=== PATIENT | female | born 1965 | race Hispanic/Latino ===

== ENCOUNTER → 2020-05-12 14:58 | Outpatient (CLI) | payer OTHER, SELFPAY ==
--- NOTE | ~2020-05-12 | CT_ITS ---
EXAMINATION: CT abdomen pelvis wo con DATE: 05/12/2020 15:19 INDICATION: Chronic bladder TECHNIQUE: Computed tomography (CT) of the abdomen and pelvis was performed without intravenous contr ast. The dose-length product was 835.85 mGy-cm. Automated exposure control and iterative reconstructi on technique were employed. COMPARISON: CT dated 04/10/2008 FINDINGS: 4 mm right middle lobe nodule, image 4. Heart size normal. No significant pleural or perica rdial effusion. The liver, spleen, pancreas, adrenal glands and kidneys are unremarkable. Gallbladder is present. No free air or free fluid. No lymphadenopathy. Gallbladder is present. Nonobstructive bowel gas pattern. Small fat-containing umbilical hernia. No acute osseous abnormality. IMPRESSION: 1. No acute abdominal abnormality. 2: 4 mm right middle lobe nodule, likely benign. Follow-up low dose CT in 12 months recommended. Reviewed, dictated and finalized at location [facility]. IMPRESSION: 1. No acute abdominal abnormality. 2: 4 mm right middle lobe nodule, likely benign. Follow-up low dose CT in 12 m [facility] recommended.
== END ==
DX: R39.82 Chronic bladder pain (principal); R91.1 Solitary pulmonary nodule
CPT/HCPCS: 74176

== ENCOUNTER → 2021-04-13 16:02 | Outpatient (CLI) | payer OTHER, SELFPAY ==
--- NOTE | ~2021-04-13 | CT_ITS ---
EXAMINATION: CT diagnostic chest wo con DATE: 04/13/2021 16:18 INDICATION: Solitary pulmonary nodule; 4 mm middle lobe nodule reported on 05/12/2020 CT abdomen pelvi s TECHNIQUE: Computed tomography (CT) of the chest was performed without intravenous contrast. Automate d exposure control and iterative reconstruction technique were employed. Exam dose: 81.03 mGy-cm tot al exam DLP. COMPARISON: None FINDINGS: Stable 3.4 mm middle lobe nodule (series 4 image 80) since 05/12/2020. Stable approximately 3.5 mm peripheral lower anteromedial middle lobe nodule (image 88) since 05/12/20 20. Stable posterior basilar peripheral right lower lobe 3.9 mm pulmonary nodule (image 102). The lungs are clear of infiltrate or consolidation. No significant new or developing pulmonary opacit y is noted since 05/12/2020. Normal heart size. No pericardial or pleural effusion. No thoracic aortic aneurysm. No hilar or mediastinal mass lesion or lymphadenopathy. Included upper abdominal structures including adrenal glands are unremarkable. Included skeletal structures are unremarkable. IMPRESSION: Several stable 3.9 mm or smaller right middle and lower lobe likely benign nodules since 05/12/2020. Reviewed, dictated and finalized at [facility]. Reviewed, dictated and finalized at location [facility]. IMPRESSION: Several stable 3.9 mm or smaller right middle and lower lobe likel y benign nodules since 05/12/2020.
== END ==
DX: R91.8 Other nonspecific abnormal finding of lung field (principal)
CPT/HCPCS: 71250

== ENCOUNTER → 2022-05-26 15:27 | Outpatient (CLI) | payer OTHER, SELFPAY ==
--- NOTE | ~2022-05-26 | CT_ITS ---
EXAMINATION: CT diagnostic chest wo con DATE: 05/26/2022 15:45 INDICATION: Incidental lung nodule TECHNIQUE: Computed tomography (CT) of the chest was performed without intravenous contrast. The dose -length product was 89.64 mGy-cm. COMPARISON: CT chest dated 04/13/[address] abdomen dated 05/12/2020 FINDINGS: Aorta is normal caliber without evidence for aneurysm. Heart size is normal. No significant pleural or pericardial effusion. No thoracic lymphadenopathy. Stable 3 mm right middle lobe nodule, image 77. Stable 3 mm nodule in the right middle lobe, image 84. Stable 4 mm nodule right lower lobe posteriorly, image 102. There is a 2-3 mm nodule right upper lobe, 34, stable. No endobronchial lesio ns. No pneumothorax. No focal airspace consolidation. Mild thoracic spondylosis. No focal lytic or bl astic skeletal lesions. IMPRESSION: 1. Stable pulmonary nodules measuring 4 mm or less, likely benign granulomatous disease. Consider fol low-up low dose CT chest in 12 months. Reviewed, dictated and finalized at location [facility]. IMPRESSION: 1. Stable pulmonary nodules measuring 4 mm or less, likely benign granulomatous disease. Consider follow-up low dose CT chest in 12 months.
== END ==
DX: R91.8 Other nonspecific abnormal finding of lung field (principal)
CPT/HCPCS: 71250

== ENCOUNTER 2023-03-22 19:50 | Emergency (ER) | payer OTHER, SELFPAY ==
[2023-03-22 19:55] VITALS: BP 145/80; PULSE 77; RESP 18; TEMP 36.7; O2SAT 100
--- NOTE | 2023-03-22 21:14 | PC.NURSE ---
patient left without being seen. states her medication that she took earlier kicked in. states she will come back tomorrow if she still feels like she needs to be seen.
== END 2023-03-22 21:43 | disposition left against medical advice (07) ==
LOC: ANHED 21:28
DX: R51.9 Headache, unspecified (principal)
CPT/HCPCS: 99199

== ENCOUNTER 2023-12-19 08:03 | Emergency (ER) | payer OTHER, SELFPAY ==
--- NOTE | ~2023-12-19 | CT_ITS ---
EXAMINATION: CT abdomen pelvis w con DATE: 12/19/2023 09:04 INDICATION: Left flank pain. TECHNIQUE: Computed tomography (CT) of the abdomen and pelvis was performed with 100 mL Omnipaque 350 intravenous contrast. Automated exposure control and iterative reconstruction technique were employe d. The dose-length product was 738.83 mGy-cm. COMPARISON: None. FINDINGS: The visualized portions of the lung bases demonstrate mild atelectasis. There is a 3 mm nod ule in right lower lobe, likely benign. No pleural effusion. The heart size is normal. No pericardial effusion. The liver, gallbladder, spleen, pancreas, adrenal glands, and kidneys are normal. There ar e no dilated loops of bowel. The appendix is not visualized. There are no pathologically enlarged lym ph nodes. There is no free intraperitoneal fluid. There is mild thoracic spondylosis and moderate lum bar spondylosis. IMPRESSION: 1. No etiology for the patient's symptoms. Reviewed, dictated and finalized at location [facility].
[2023-12-19 08:11] VITALS: BP 135/76; PULSE 60; RESP 16; TEMP 36.6; O2SAT 98
[2023-12-19 08:35] LABS: Basophils Absolute Auto 0.1 K/mm3 (0.0-0.1); Basophils Percent Auto 0.7 % (0.2-1.2); Eosinophils Absolute Auto 0.2 K/mm3 (0-0.3); Hematocrit 40.9 % (37.0-47.0); Hemoglobin 13.3 g/dL (12.0-15.0); Immature Granulocyte Absolute 0.02 K/mm3 (0.00-0.031); Immature Granulocyte Percent A 0.3 % (0-0.5); Lymphocytes Absolute Auto 2.09 K/mm3 (0.9-3.2); Lymphocytes Percent Auto 28.9 % (18.3-44.2); Mean Corpuscular HGB Conc 32.5 g/dl (32-36); Mean Corpuscular Hemoglobin 28.9 pg (26-34); Mean Corpuscular Volume 88.9 fl (80-100); Mean Platelet Volume 9.9 fl (7.4-10.4); Monocytes Absolute Auto 0.4 K/mm3 (0.1-0.6); Monocytes Percent Auto 5.8 % (2.6-8.5); Neutrophils Absolute Auto 4.4 K/mm3 (1.3-6.7); Neutrophils Percent Auto 61.3 % (45.5-73.1); Platelet Count Result 253 k/mm3 (150-375); Red Cell Distribution Width 12.8 % (11.5-14.5); White Blood Count 7.2 K/mm3 (4.5-10.0)
[2023-12-19] MEDS: SODIUM CHLORIDE 0.9% IV 1,000 ML 999 ML IV CONT (08:35)
[2023-12-19] MEDS: ONDANSETRON INJ 4 MG/2 ML VIAL IV PUSH (08:35)
[2023-12-19] MEDS: MORPHINE SULFATE (*CRX) 4 MG/ML INJ IV PUSH (08:35)
[2023-12-19 08:44] LABS: Alanine Aminotransferase 22 U/L (6-35); Albumin Level 4.4 g/dL (3.5-5.1); Alkaline Phosphatase 79 U/L (38-126); Anion Gap 4 mmol/L (4-12); Aspartate Amino Transferase 20 U/L (14-36); Bilirubin,Total 0.5 mg/dL (0.2-1.3); Blood Urea Nitrogen 17 mg/dL (7-17); Calcium 9.4 mg/dL (8.4-10.2); Carbon Dioxide 26 mmol/L (22-30); Chloride 109 mmol/L (98-107); Estimated CRCL calculation 88 ml/min; Estimated Glomerular Filt Rate > 60; Glucose 105 mg/dL (65-110); Lipase 108 U/L (23-300); Sodium 139 mmol/L (137-145)
[2023-12-19 08:46] LABS: Appearance Urine Clear (Clear); Bacteria Urine None Seen /hpf; Bilirubin Urine Negative (Negative); Blood Urine Trace (Negative); Color Urine Yellow (Yellow); Glucose Urine UA Negative (Negative); Ketones Urine Negative (Negative); Leukocyte Esterase Ur Negative LEU/UL (Negative); Nitrate Urine Negative (Negative); Non Pathogenic Casts 0-2; Protein Urine Negative (Negative); RBC Urine 0-2 /hpf (0-2); Specific Grav Ur 1.014 (1.001-1.035); Squamous Epithelial Cell Urine None Seen /hpf (Few); Urobilinogen Urine 0.2 mg/dL (<2.0); WBC Urine 0-5 /hpf (0-3)
[2023-12-19 09:17] LABS: Add Urine Microscopic? YES
--- NOTE | 2023-12-19 10:17 | ED.ABDPAIN ---
HPI - Abdominal Pain General Chief Complaint: Abdominal Pain Stated Complaint: left flank pain Time Seen by Provider: 12/19/23 08:14 History of Present Illness HPI narrative: This is a 58-year-old female, with no significant past medical history, who presents to the emergency department complaining of left flank pain for the past 3 days. The patient denies any known trauma or recent change in health. She states she was at rest when she felt a sharp pain in the left flank. It is constant and aggravated by direct touch without any other obvious aggravating or alleviating factors. She rates it 8/10 at maximum and 4/10 at rest. She complains of some nausea with worsening of her pain. She has no other complaints at this time. Related Data Allergies Allergy/AdvReac Type Severity Reaction Status Date / Time clavulanic acid Allergy Mild Unknown Verified 12/19/23 08:20 codeine Allergy Mild Unknown Verified 12/19/23 08:20 Penicillins Allergy Mild Unknown Verified 12/19/23 08:20 ALLERGY SHOT SERUM Allergy Mild DIFF Uncoded 12/19/23 08:20 BREATHING BETALACTAMASEIN Allergy Mild Unknown Uncoded 12/19/23 08:20 ENVIRONMENTALS-DUST,OAK,MOLD,GRASS,CATS,DOGS Allergy Mild HIVES, Uncoded 12/19/23 08:20 SINUS REACTION, SWELLING Review of Systems Review of Systems: CONSTITUTIONAL: Denies fever, chills, or sweats. EYES: Denies visual changes, redness, or discharge. ENT: Denies rhinorrhea, congestion, sore throat, or otalgia. CARDIOVASCULAR: Denies chest pain, palpitations, or edema. RESPIRATORY: Denies cough or dyspnea. GASTROINTESTINAL: Left flank pain Denies abdominal pain, nausea, vomiting, or diarrhea. GENITOURINARY: Denies dysuria or hematuria. SKIN: Denies rash or itching. MUSCULOSKELETAL: Denies back pain, joint pain, or myalgia. NEUROLOGIC: Denies headache, numbness, dizziness, or weakness. PSYCHIATRIC: Denies anxiety or depression. [facility] Past Medical History Medical History (Updated 12/19/23 @ 10:25 by Duglas Matta MD) No significant past medical history Surgical History Surgical History (Updated 12/19/23 @ 10:25 by Duglas Matta MD) No significant past surgical history Social History Social History (Updated 12/19/23 @ 10:25 by Duglas Matta MD) Smoking status: Never smoker Alcohol intake: current Substance use: current Substance use type: marijuana Exam Narrative: GENERAL: Well-developed, well-nourished, and in no acute distress. HEAD: Normocephalic, atraumatic. EYES: PERRLA and EOMI. ENT: Nares clear, no rhinorrhea or epistaxis. Mucous membranes moist. Oropharynx without tonsillar hypertrophy exudate or other lesions. CHEST: Clear to auscultation. No respiratory distress. No wheezes rales or rhonchi HEART: Regular rate and rhythm. No murmur heard. Normal peripheral pulses. ABDOMEN: Soft, mild left upper quadrant tenderness without rebound, nondistended, normal active bowel sounds. Left CVA tenderness. No right CVA tenderness EXTREMITIES: Normal range of motion. No edema. SKIN: Warm, dry, no rash. NEURO: Alert and oriented x3. No focal deficit. Moving all 4 limbs spontaneously PSYCH: Normal mood and affect. Course Course Emergency Course: 10:15 - CBC unremarkable. Chemistries unremarkable. UA not concerning for urinary tract infection or hematuria. CT abdomen pelvis unremarkable. I do not have a good explanation for the patient's pain. I suspect this may be related to muscle spasm or perhaps radiculopathy. Will discharge with pain medications muscle relaxers and recommendation for primary care follow-up. I discussed the findings and recommendations with the patient. Discussed return and emergency precautions including signs/symptoms of acute abdomen. The patient voiced understanding and agreement with the plan. All questions answered to her satisfaction. Vital Signs Vital signs: Vital Signs Temperature 98 F 12/19/23 08:11 Pulse Rate 60 12/19/23 08:
== END 2023-12-19 10:38 | disposition home or self-care (01) ==
PROVIDERS: Emergency Provider Preventive Medicine Aerospace Medicine
DX: R10.9 Unspecified abdominal pain (principal)
CPT/HCPCS: 36415; 74177; 80053; 81001; 81025; 83690; 85025; 96361; 96374; 96375; 99284; J2270; J2405; J7030; Q9967

== ENCOUNTER 2024-02-23 11:50 | Emergency (ER) | payer OTHER, SELFPAY ==
--- NOTE | ~2024-02-23 | CT_ITS ---
CT of the Abdomen and Pelvis: Indication: Abdominal pain Technique: 2.5 mm axial scans were obtained through the abdomen and pelvis following intravenous adm inistration of 100 cc of Omnipaque 350. Dose reduction technique was used on this scan by utilizing a utomated exposure control and iterative reconstruction technique. The dose-length product (DLP) was 8 52.18 mGy-cm. COMPARISON: 12/19/2023 Findings: Scans through the lung bases are unremarkable. There is diffuse hepatic steatosis. The spleen, pancreas, gallbladder, adrenals and kidneys are withi n normal limits. No evidence of aortic aneurysm. No lymphadenopathy. No bowel obstruction or bowel wall thickening. There is no evidence to suggest acute appendicitis. Sm all fat-containing umbilical hernia present. Images through the pelvis were performed. Urinary bladder unremarkable. No pelvic mass seen. No ascit es. Impression: No acute abnormality. Diffuse hepatic steatosis. Small fat-containing umbilical hernia. Reviewed, dictated and finalized at [facility]. Impression: No acute abnormality. Diffuse hepatic steatosis. Small fat-containing umbilical hernia.
[2024-02-23 11:55] VITALS: BP 146/80; PULSE 60; RESP 16; TEMP 36.4; O2SAT 99
[2024-02-23 12:44] LABS: Basophils Percent Auto 0.6 % (0.2-1.2); Eosinophils Absolute Auto 0.1 K/mm3 (0-0.3); Eosinophils Percent Auto 0.7 % (0-4.4); Hematocrit 38.9 % (37.0-47.0); Hemoglobin 13.2 g/dL (12.0-15.0); Immature Granulocyte Absolute 0.03 K/mm3 (0.00-0.031); Immature Granulocyte Percent A 0.4 % (0-0.5); Lymphocytes Absolute Auto 2.13 K/mm3 (0.9-3.2); Lymphocytes Percent Auto 31.2 % (18.3-44.2); Mean Corpuscular HGB Conc 33.9 g/dl (32-36); Mean Corpuscular Hemoglobin 29.7 pg (26-34); Mean Corpuscular Volume 87.6 fl (80-100); Mean Platelet Volume 10.2 fl (7.4-10.4); Monocytes Absolute Auto 0.6 K/mm3 (0.1-0.6); Monocytes Percent Auto 8.2 % (2.6-8.5); Neutrophils Percent Auto 58.9 % (45.5-73.1); Platelet Count Result 224 k/mm3 (150-375); Red Blood Count 4.44 M/mm3 (4.2-5.4); White Blood Count 6.8 K/mm3 (4.5-10.0)
[2024-02-23 12:48] LABS: Appearance Urine Clear (Clear); Bacteria Urine None Seen /hpf; Bilirubin Urine Negative (Negative); Blood Urine Trace (Negative); Color Urine Yellow (Yellow); Glucose Urine UA Negative (Negative); Ketones Urine Negative (Negative); Leukocyte Esterase Ur Negative LEU/UL (Negative); Nitrate Urine Negative (Negative); Non Pathogenic Casts 0-2; Protein Urine Negative (Negative); RBC Urine 0-2 /hpf (0-2); Specific Grav Ur 1.005 (1.001-1.035); Squamous Epithelial Cell Urine None Seen /hpf (Few); Urobilinogen Urine 0.2 mg/dL (<2.0); WBC Urine 0-5 /hpf (0-3)
[2024-02-23 12:51] LABS: Add Urine Microscopic? YES
[2024-02-23 12:55] LABS: Alanine Aminotransferase 37 U/L (6-35); Albumin Level 4.6 g/dL (3.5-5.1); Alkaline Phosphatase 92 U/L (38-126); Anion Gap 7 mmol/L (4-12); Aspartate Amino Transferase 28 U/L (14-36); Bilirubin,Total 0.7 mg/dL (0.2-1.3); Blood Urea Nitrogen 9 mg/dL (7-17); Calcium 9.1 mg/dL (8.4-10.2); Carbon Dioxide 27 mmol/L (22-30); Chloride 103 mmol/L (98-107); Estimated CRCL calculation 86 ml/min; Estimated Glomerular Filt Rate > 60; Glucose 104 mg/dL (65-110); Lipase 217 U/L (23-300); Potassium 3.5 mmol/L (3.4-5.0); Sodium 137 mmol/L (137-145)
[2024-02-23] MEDS: ONDANSETRON INJ 4 MG/2 ML VIAL IV PUSH (13:08)
[2024-02-23] MEDS: BELLADONNA ALK/PHENOB ELIX 10 ML, MAG HYDROX/ALUMINUM HYD/SIMETH 30 ML, LIDOCAINE HCL 2... PO (13:09)
--- NOTE | 2024-02-23 13:12 | ED.ABDPAIN ---
HPI - Abdominal Pain General Chief Complaint: Abdominal Pain Stated Complaint: took prednisone without food, upset stomach Time Seen by Provider: 02/23/24 12:47 History of Present Illness HPI narrative: 58-year-old female presents to the emergency department for evaluation for abdominal pain after taking prednisone the. Patient reports yesterday she took a prednisone and naproxen because she was having some right-sided muscle pain from water skiing. Patient states after taking medication she had onset flush face, and abdominal pain. Patient states she is still having abdominal pain. Patient reports she feels bloated. Related Data Home Medications Medication Instructions Recorded Confirmed ibamhqggxp-ciwoljsmgbcno-iqcuofgf tablet 02/23/24 02/23/24 50 mg-325 mg-40 mg tablet levothyroxine 88 mcg tablet mcg 02/23/24 methylprednisolone 4 mg tablets in mg 02/23/24 a dose pack rizatriptan 10 mg tablet mg 02/23/24 trazodone 50 mg tablet mg 02/23/24 triamcinolone acetonide 0.5 % applic topical 02/23/24 topical cream Allergies Allergy/AdvReac Type Severity Reaction Status Date / Time clavulanic acid Allergy Mild Unknown Verified 02/23/24 12:07 codeine Allergy Mild Unknown Verified 02/23/24 12:07 Penicillins Allergy Mild Unknown Verified 02/23/24 12:07 ALLERGY SHOT SERUM Allergy Mild DIFF Uncoded 02/23/24 12:07 BREATHING BETALACTAMASEIN Allergy Mild Unknown Uncoded 02/23/24 12:07 ENVIRONMENTALS-DUST,OAK,MOLD,GRASS,CATS,DOGS Allergy Mild HIVES, Uncoded 02/23/24 12:07 SINUS REACTION, SWELLING Review of Systems Review of Systems: All systems reviewed & are unremarkable except as noted in HPI and below PMFSH Past Medical History Medical History (Updated 02/23/24 @ 13:58 by Joseph Willson MD) No significant past medical history Surgical History Surgical History (Updated 12/19/23 @ 10:25 by Duglas Matta MD) No significant past surgical history Social History Social History (Updated 12/19/23 @ 10:25 by Duglas Matta MD) Smoking status: Never smoker Alcohol intake: current Substance use: current Substance use type: marijuana Exam Narrative: APPEARANCE: Well appearing, no pain, no distress, well-nourished. HEAD: normocephalic, atraumatic. EYES: PERRLA/EOMI, conjunctivae clear. NOSE: Normal no drainage EARS:TMS clear with good light reflex. THROAT: Pharynx clear, no exudate. NECK: Supple. No adenopathy, no masses. RESPIRATORY: Airway patent, respirations nonlabored. Clear to auscultation bilaterally, no rales, rhonchi, wheezing. CARDIOVASCULAR: Regular rate and rhythm without murmurs rubs or gallops. ABDOMINAL: Diffuse abdominal tenderness to palpation MUSCULOSKELETAL: Moves all extremities. Strength/ROM intact, No edema, No calf tenderness. NEURO: Alert. Cranial nerves II through XII intact. Good gait. Good coordination SKIN: Warm, dry. Normal Color PSYCHIATRIC: Normal affect/mood. Course Vital Signs Vital signs: Vital Signs Temperature 97.6 F 02/23/24 11:55 Pulse Rate 60 02/23/24 11:55 Respiratory Rate 16 02/23/24 11:55 Blood Pressure 146/80 H 02/23/24 11:55 Pulse Oximetry 99 02/23/24 11:55 Temperature 97.6 F 02/23/24 11:55 Pulse Rate 60 02/23/24 11:55 Respiratory Rate 16 02/23/24 11:55 Blood Pressure 146/80 H 02/23/24 11:55 Pulse Oximetry 99 02/23/24 11:55 MDM - Abdominal Pain MDM Narrative Medical decision making narrative: 58-year-old female presents emergency department for evaluation of epigastric pain and abdominal bloating. Patient is afebrile with no leukocytosis and a stable hemoglobin of 13.2. Patient has no significant abnormalities on her CMP and lipase is negative. UA is negative. CT scan showed no acute abnormalities. Patient was updated the results of her workup patient was comfortable with plan for discharge and close follow-up. Differential Diagnosis Differential diagnosis: Likely
== END 2024-02-23 14:15 | disposition home or self-care (01) ==
PROVIDERS: Emergency Medicine; Emergency Provider Emergency Medicine
DX: K29.70 Gastritis, unspecified, without bleeding (principal); Z79.899 Other long term (current) drug therapy; K76.0 Fatty (change of) liver, not elsewhere classified; K42.9 Umbilical hernia without obstruction or gangrene
CPT/HCPCS: 36415; 74177; 80053; 81001; 83690; 85025; 96360; 99284; A9270; J2405; Q9967

== ENCOUNTER 2024-04-26 14:25 | Emergency (ER) | payer OTHER, SELFPAY ==
--- NOTE | 2024-04-26 14:36 | ED.FEMALEGU ---
HPI - Female Genitourinary General Chief complaint: Urogenital-Female Stated complaint: FREQUENT URINATION Time Seen by Provider: 04/26/24 14:49 Source: patient and RN notes reviewed Mode of arrival: ambulatory Limitations: no limitations History of Present Illness HPI Narrative: 58-year-old female presents concern for urine frequency for 4 days. She denies dysuria, urgency, suprapubic pain, back pain, fever, aches, chills, sweats. She reports history of overactive bladder she has had it twice before both times in March. Reports her urologist prescribed her a medication that helped resolve it. MD elicited complaint: other (urine frequency) Related Data Home Medications Medication Instructions Recorded Confirmed [id number]-ufhtyogsxwftt-lecowlae tablet 02/23/24 02/23/24 50 mg-325 mg-40 mg tablet levothyroxine 88 mcg tablet mcg 02/23/24 methylprednisolone 4 mg tablets in mg 02/23/24 a dose pack rizatriptan 10 mg tablet mg 02/23/24 trazodone 50 mg tablet mg 02/23/24 triamcinolone acetonide 0.5 % applic topical 02/23/24 topical cream Allergies Allergy/AdvReac Type Severity Reaction Status Date / Time clavulanic acid Allergy Mild Unknown Verified 02/23/24 12:07 codeine Allergy Mild Unknown Verified 02/23/24 12:07 Penicillins Allergy Mild Unknown Verified 02/23/24 12:07 ALLERGY SHOT SERUM Allergy Mild DIFF Uncoded 02/23/24 12:07 BREATHING BETALACTAMASEIN Allergy Mild Unknown Uncoded 02/23/24 12:07 ENVIRONMENTALS-DUST,OAK,MOLD,GRASS,CATS,DOGS Allergy Mild HIVES, Uncoded 02/23/24 12:07 SINUS REACTION, SWELLING Review of Systems Review of Systems: CONSTITUTIONAL: Denies malaise, chills, sweats, or fever. CARDIOVASCULAR: Denies chest pain, palpitations, or edema. RESPIRATORY: Denies cough or dyspnea. GASTROINTESTINAL: Denies abdominal pain, nausea, vomiting, diarrhea GENITOURINARY: Denies dysuria, urgency, suprapubic pressure. Denies flank pain or hematuria. Reports urine frequency SKIN: Denies rash or itching. MUSCULOSKELETAL: Denies back pain or myalgia. All systems reviewed & are unremarkable except as noted in HPI and below PMFSH Past Medical History Medical History (Updated 04/26/24 @ 14:57 by Jessy Paredes NP) No significant past medical history Surgical History Surgical History (Updated 12/19/23 @ 10:25 by Duglas Matta MD) No significant past surgical history Social History Social History (Updated 12/19/23 @ 10:25 by Duglas Matta MD) Smoking status: Never smoker Alcohol intake: current Substance use: current Substance use type: marijuana Comments At time of signature, agree with nursing past medical, surgical, social and family history. There is no relevant family history pertinent to the presenting complaint Exam Narrative: GENERAL: Well-appearing, well-nourished, and in no acute distress. HEAD: Normocephalic. EYES: PERRLA, conjunctivae clear. NECK: Supple. No lymphadenopathy CHEST: Clear to auscultation. No respiratory distress. HEART: Regular rate and rhythm. SKIN: Warm, dry, no rash. NEURO: Alert and oriented x3. PSYCH: Normal mood and affect Course Course Emergency Course: Patient is aware of diagnosis, understands and agrees to treatment plan. Anticipatory guidance given. Patient agrees to follow-up as directed and is aware of reasons to seek care at the emergency department. Portions of this record may have been created with voice recognition software Level of Care: Express Care Visit Vital Signs Vital signs: Reviewed. MDM - Female Genitourinary MDM Narrative Medical decision making narrative: Exam findings and UA show no acute concerns or changes; patient is non-toxic appearing and is in no distress. Patient is appropriate for outpatient treatment and follow-up. Differential Diagnosis Differential diagnosis: Likely urinary tract infection and cystitis Critical Care Time Critical Care Time Brad
[2024-04-26 14:38] VITALS: BP 153/86; PULSE 65; RESP 16; TEMP 36.4; O2SAT 100
[2024-04-26 14:50] LABS: EDUAAPPEAR Clear; EDUABILI Negative; EDUABLOOD Trace; EDUACOLOR1 Light/Pale; EDUAGLUCOSE Negative; EDUAKETONE Negative; EDUALEUKO Negative; EDUANITRATE Negative; EDUAPROTEIN Negative; EDUAUROBILI 0.2
== END 2024-04-26 15:06 | disposition home or self-care (01) ==
PROVIDERS: Emergency Provider Nurse Practitioner
DX: R35.0 Frequency of micturition (principal)
CPT/HCPCS: 81003; 87086; 99213; G0463

== ENCOUNTER 2024-07-13 13:12 | Emergency (ER) | payer OTHER, SELFPAY ==
--- NOTE | 2024-07-13 14:10 | ED.URI ---
HPI - URI/Sore Throat General Chief Complaint: Upper Respiratory Infection Stated Complaint: congestion Time Seen by Provider: 07/13/24 14:10 Source: patient, RN notes reviewed and old records reviewed Mode of arrival: ambulatory Limitations: no limitations History of Present Illness HPI Narrative: 59-year-old female to [facility] Care with complaint nasal congestion for 1 week that improves with use of Sudafed. Patient reports history of sleep apnea, states she has difficulty wearing her CPAP due to the nasal congestion Patient denies allergies, fever, ear pain, cough. Patient able to tolerate fluids by mouth. Patient resting in exam room in no acute distress. Respirations even and nonlabored. Related Data Home Medications Medication Instructions Recorded Confirmed nzovsicilf-snqbafvsjllxq-nvqjcavh 1 tablet PO Q6H PRN Headache 02/23/24 07/13/24 50 mg-325 mg-40 mg tablet levothyroxine 88 mcg tablet 88 mcg PO DAILY 02/23/24 07/13/24 rizatriptan 10 mg tablet 10 mg PO USEASDIRECTD 02/23/24 07/13/24 trazodone 50 mg tablet 50 mg PO HS 02/23/24 07/13/24 Allergies Allergy/AdvReac Type Severity Reaction Status Date / Time clavulanic acid Allergy Mild Unknown Verified 07/13/24 14:16 codeine Allergy Mild Unknown Verified 07/13/24 14:16 Penicillins Allergy Mild Unknown Verified 07/13/24 14:16 ALLERGY SHOT SERUM Allergy Mild DIFF Uncoded 07/13/24 14:16 BREATHING BETALACTAMASEIN Allergy Mild Unknown Uncoded 07/13/24 14:16 ENVIRONMENTALS-DUST,OAK,MOLD,GRASS,CATS,DOGS Allergy Mild HIVES, Uncoded 07/13/24 14:16 SINUS REACTION, SWELLING Review of Systems Review of Systems: All systems reviewed & are unremarkable except as noted in HPI and below Constitutional: Constitutional: Reports no additional constitutional complaints Eyes: Eyes: Reports no additional eye complaints ENT: Reports as per HPI and Reports nasal congestion Cardiovascular: Cardiovascular: Reports no additional cardiovascular complaints, Denies chest pain and Denies dyspnea Respiratory: Respiratory: Reports no additional respiratory complaints, Denies cough and Denies dyspnea Musculoskeletal: Musculoskeletal: Reports no additional musculoskeletal complaints Neurologic: Reports system reviewed and no additional complaints, except as documented Psychiatric: Psychiatric: Reports no additional psychiatric complaints PMFSH Past Medical History Medical History (Updated 07/13/24 @ 19:22 by Eboni Lemos APRN) No significant past medical history Surgical History Surgical History (Updated 12/19/23 @ 10:25 by Duglas Matta MD) No significant past surgical history Social History Social History (Updated 12/19/23 @ 10:25 by Duglas Matta MD) Smoking status: Never smoker Alcohol intake: current Substance use: current Substance use type: marijuana Comments At the time of my signature, I reviewed and agree with the nursing past medical, surgical, social, and family history. There is no relevant family history pertinent to the patient complaint. Exam Const: General: cooperative, no acute distress, alert, tired appearing and well nourished Nutritional Appearance: well nourished Orientation/consciousness: patient oriented x3 Limitations: no limitations HENMT: Head: normal to inspection Ears: external ears normal and TM abnormal with fluid behind the TM bilateral Face/Nose/Sinus: Normal external nose present, Normal nares present, normal facial exam, No erythema and No edema Face and sinus: no erythema, no edema and sinus tenderness Mouth: Yes Normal oral and palatal mucosa present Eyes: General: appearance normal, both eyes and all related structures Neck: Neck: normal visual inspection, full ROM and no meningeal signs Lymphatic: no lymphadenopathy noted and no lymphedema noted Chest: Chest palpation & inspection: normal inspection of the chest Resp: Effort & Inspection: normal respiratory effort and able to speak in complete sentences Auscultation: clear to auscultation bilaterally Cardio: Jugular venous distension: no JVD Rate: regular rate Rhythm: regular rhythm Back/Spine/Pelvis: Cervical Spine: cervical ROM normal Skin: General skin exam: normal color, no rashes or lesions noted and turgor normal Neuro: General: patient oriented x3, gait normal, moves all extremities and no meningeal signs Speech: normal speech Gait exam (Neuro): Normal gait present Extrem: General: normal to inspection, full ROM and capillary refill normal Psych: Appearance: grossly normal and well kempt Course Course Emergency Course: Some parts of this dictation were generated by voice recognition software and may contain typographical and/or grammatical inaccuracies. Level of Care: Express Care Visit Vital Signs Vital signs: Vital Signs Temperature 36.9 C 07/13/24 14:17 Pulse Rate 77 11/16/24 14:17 Respiratory Rate 16 07/13/24 14:17 Blood Pressure 125/86 07/13/24 14:17 Pulse Oximetry 100 07/13/24 14:17 Temperature 36.9 C 07/13/24 14:19 Pulse Rate 77 07/13/24 14:19 Respiratory Rate 16 07/13/24 14:19 Blood Pressure 125/86 07/13/24 14:19 Pulse Oximetry 100 07/13/24 14:19 reviewed MDM - URI/Sore Throat MDM Narrative Medical decision making narrative: 59-year-old female to [facility] Care with complaint nasal congestion for 1 week that improves with use of Sudafed. Patient reports history of sleep apnea, states she has difficulty wearing her CPAP due to the nasal congestion Patient denies allergies, fever, ear pain, cough. Patient able to tolerate fluids by mouth. Patient resting in exam room in no acute distress. Respirations even and nonlabored. on exam, sinus tenderness present, bilateral TMs with fluid. Exam otherwise unremarkable. Patient is sitting comfortably in exam room nontoxic in appearance. Patient appropriate for outpatient treatment and follow-up. Discharge instructions reviewed with patient, as well as provided in writing per nursing staff. The instructions also include specific and strict return/GO TO THE ER as well as f/u information. All questions have been answered, and the patient deny any further questions with discharge and discharge plan. Some parts of this dictation were generated by voice recognition software and may contain typographical and/or grammatical inaccuracies. Differential Diagnosis Differential diagnosis: Likely upper respiratory infection, croup, otitis media, sinusitis, viral infection, bronchitis, influenza and pharyngitis Discharge Plan Discharge Clinical Impression: Sinusitis Patient Disposition: Home, Self-Care Condition: Stable Instructions: Antibiotic Form Additional Instructions: -Alternate Tylenol and Motrin per package directions for fever or pain. -Antihistamine medication such as Benadryl at night and Zyrtec/Claritin/Catrina during the day can help improve symptoms. -Use Flonase twice a day for 5 days then daily to help reduce the inflammation and dry up your sinuses. -You can also use Sudafed or Mucinex. Be sure to drink plenty of water with these medications at least 8 ounces with every dose and it is important to drink 8 to 10 glasses of water per day. Water is a natural decongestant -Eat and drink things that are easy to swallow, like tea or soup, or popsicles. -Oral rinses such as: Salt water gargles and/or may use topical anesthetic (eg. Chloraseptic spray) or lozenges to relieve dryness or throat pain). -Frequent hand washing or hand rn recovery is one of the best ways to prevent spread of infection. -Using a vaporizer or humidifier at night will also help thin secretions and help with coughing up phlegm. -Follow up with primary care provider in 2-3 days if condition is not improving; or seek ER visit if you have trouble breathing, cannot drink enough fluids, have muffled voice, difficulty opening your mouth, or severe swelling. Prescriptions: New prednisone 20 mg tablet See Rx Instructions .ROUTE .COMPLEX Qty: 9 0RF Rx Instructions: Take 40mg x3 days, 20mg x3 days. Take in the morning doxycycline monohydrate 100 mg tablet 100 mg PO BID 10 Days Qty: 20 0RF No Action trazodone 50 mg tablet 50 mg PO HS rizatriptan 10 mg tablet 10 mg PO USEASDIRECTD igozpilgke-aroaqspnbouge-kxhp 50-325-40 mg tablet 1 tablet PO Q6H PRN (Reason: Headache) levothyroxine 88 mcg tablet 88 mcg PO DAILY Follow-up/Referrals: UNKNOWN,DOCTOR [Primary Care Provider] -
[2024-07-13 14:17] VITALS: BP 125/86; PULSE 77; RESP 16; TEMP 36.9; O2SAT 100
[2024-07-13 14:19] VITALS: BP 125/86; PULSE 77; RESP 16; TEMP 36.9; O2SAT 100
[2024-07-15 10:04] LABS: EDCOVIDSCREEN Negative (Negative); EDINFLUASCREEN Negative (Negative); EDINFLUBSCREEN Negative (Negative)
== END 2024-07-13 15:19 | disposition home or self-care (01) ==
PROVIDERS: Emergency Provider Nurse Practitioner Family
DX: J32.9 Chronic sinusitis, unspecified (principal); Z20.822 Contact with and (suspected) exposure to COVID-19; F12.90 Cannabis use, unspecified, uncomplicated
CPT/HCPCS: 87426; 87804; 99213; G0463